=== PATIENT | female | born 1975 | race Caucasian/White ===

== ENCOUNTER 2017-07-12 09:56 | Emergency (ER) | payer OTHER ==
[~2017-07-12] VITALS: Ht 172.7 cm; Wt 99.5 kg
[2017-07-12 11:09] VITALS: BP 104/80
[2017-07-12 11:50] LABS: HEMATOCRIT 43.5 % (36.0-46.0); HEMOGLOBIN 14.3 G/DL (11.9-15.5); MCHC 32.9 G/DL (30.0-36.0); MCV 91.2 FL (83-99); PLATELET COUNT 124 K/uL (156-360); RBC DIS.WIDTH-SD 40.4 % (39-53); RED BLOOD COUNT 4.77 M/uL (3.80-5.20); WHITE BLOOD COUNT 3.3 K/uL (4.1-10.2)
[2017-07-12 11:58] LABS: CHLORIDE 103 mEq/L (99-109); POTASSIUM 3.7 mEq/L (3.7-5.4); SODIUM 139 mEq/L (136-147)
[2017-07-12 12:00] LABS: GLUCOSE 95 mg/dL (70-99)
[2017-07-12 12:04] LABS: CREATININE 1.1 mg/dL (0.6-1.3); UREA NITROGEN (BUN) 11 mg/dL (9-23)
[2017-07-12 12:05] LABS: GFR ESTIMATE (CALCULATED) 58 mL/min/
== END 2017-07-12 14:56 | disposition home or self-care (01) ==
LOC: EME 09:56
DX: J06.9 Acute upper respiratory infection, unspecified (principal); R11.0 Nausea
CPT/HCPCS: 71046; 80048; 85027